=== PATIENT | male | born 1980 | race Caucasian/White ===

== ENCOUNTER 2019-05-01 08:39 | Inpatient (IN) | payer OTHER ==
--- NOTE | 2019-05-01 10:06 | HP ---
COWS - Scale Resting Pulse: 0= IN 80 or Below Sweatin=Flushed/Facial Moisture Restless Observation: 1= Difficult to Sit Still Pupil Size: 1= Pupils >than Normal Bone or Joint Aches: 1= Mild Discomfort Runny Nose/ Eye Tearin= Runny Nose/Eyes GI Upset > 30mins: 2= Nausea/Diarrhea Tremor Observation: 2= Slight Tremor Visible Yawning Observation: 2= >3x During Session Anxiety or Irritability: 1=Feels Anxious/Irritable Goose Flesh Skin: 3=Piloerection COWS Score: 17 CIWA Score Nausea/Vomitin Muscle Tremors: 2 Anxiety: 2 Agitation: 1-Slight > Activity Paroxysmal Sweats: 2 Orientation: 0-Oriented Tacttile Disturbances: 3-Moderate Itch/Numb/Burn Auditory Disturbances: 0-None Visual Disturbances: 1-Very Mild Sensitivity Headache: 1-Very Mild CIWA-Ar Total Score: 14 - Admission Criteria OASAS Guidelines: Admission for Medically Managed Detox: Requires at least one of the followin. CIWA greater than 12 2. Seizures within the past 24 hours 3. Delirium tremens within the past 24 hours 4. Hallucinations within the past 24 hours 5. Acute intervention needed for co occurring medical disorder 6. Acute intervention needed for co occurring psychiatric disorder 7. Severe withdrawal that cannot be handled at a lower level of care (continued vomiting, continued diarrhea, abnormal vital signs) requiring intravenous medication and/or fluids 8. Patient presents the following: CIWA greater than 12 Admission Criteria Met: Admission criteria met Admission ROS [facility] Chief Complaint: I need help Allergies/Adverse Reactions: Allergies Allergy/AdvReac Type Severity Reaction Status Date / Time No Known Allergies Allergy Verified 05/01/19 09:20 History of Present Illness: 39 year old man with opiates and alcohol dependence presents for detox, his last treatment was in 2017 at [facility]. 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 Exam Limitations: No Limitations - Ebola screening Have you traveled outside of the country in the last 21 days: No (N) Have you had contact with anyone from an Ebola affected area: No Have you been sick,other than usual withdrawal symptoms: No Do you have a fever: No - Review of Systems Constitutional: Chills, Changes in sleep EENT: reports: Tearing, Nose Congestion Respiratory: reports: Cough Cardiac: reports: Lightheadedness (occasionally) GI: reports: Diarrhea, Nausea : reports: No Symptoms Reported Musculoskeletal: reports: Back Pain, Muscle Pain Integumentary: reports: Flushing Neuro: reports: Headache, Numbness, Tremors Endocrine: reports: No Symptoms Reported Hematology: reports: Anemia Psychiatric: reports: Anxious, Depressed Other Systems: Reviewed and Negative Patient History - Patient Medical History Hx Anemia: Yes Hx Asthma: Yes Hx Chronic Obstructive Pulmonary Disease (COPD): No Hx Cancer: No Hx Cardiac Disorders: No Hx Congestive Heart Failure: No Hx Hypertension: No Hx Hypercholesterolemia: No Hx Pacemaker: No Hx Seizures: No Hx Dementia: No Hx Diabetes: No Hx Gastrointestinal Disorders: No Hx Liver Disease: No Hx Genitourinary Disorders: No Hx Sexually Transmitted Disorders: No Hx Renal Disease (ESRD): No Hx Thyroid Disease: No Hx Human Immunodeficiency Virus (HIV): No Hx Hepatitis C: No Hx Depression: Yes Hx Suicide Attempt: No Hx Bipolar Disorder: Yes Hx Schizophrenia: No - Patient Surgical History Past Surgical History: No - PPD History Previous Implant?: No Documented Results: Negative w/o proof Implanted On Prior [facility] Admission?: No PPD to be Administered?: Yes - Smoking Cessation Smoking history: Current every day smoker Have you smoked in the past 12 months: Yes Aproximately how many cigarettes per day: 3 Hx Chewing Tobacco Use: No Initiated information on smoking cessation: Yes 'Breaking Loose' booklet given: 05/01/19 - Substance & Tx. History Hx Alcohol Use: Yes Hx Substance Use: Yes Substance Use Type: Cocaine, Marijuana, Opiates - Substances abused Alcohol Substance route: Oral Frequency: Daily Amount used: 2 pints Bacardi Age of first use: 24 Date of last use: 04/28/19 Heroin Substance route: Injection Frequency: Daily Amount used: 3 -6 bags/day Age of first use: 29 Date of last use: 04/30/19 Benzodiazepine (Klonopin) Substance route: Oral Frequency: Daily Amount used: 8mg Age of first use: 19 Date of last use: 04/28/19 Family Disease History - Family Disease History Family History: Unable to Obtain Admission Physical Exam BHS - Vital Signs Vital Signs: Vital Signs - 24 hr 05/01/19 09:14 Temperature 97.7 F Pulse Rate 46 L Respiratory 18 Rate Blood Pressure 152/78 - Physical HEENTM: Yes: Normocephalic, Normal Voice, Pharynx Normal, Tm's normal, Nasal Congestion, Rhinorrhea Respiratory: Yes: Chest Non-Tender, Lungs Clear, Normal Breath Sounds, No Respiratory Distress, No Accessory Muscle Use Neck: Yes: No masses,lesions,Nodules, Trachea in good position Breast: Yes: Breast Exam Deferred Cardiology: Yes: Regular Rhythm, Regular Rate, S1, S2 Abdominal: Yes: Normal Bowel Sounds, Non Tender, Flat Genitourinary: Yes: Within Normal Limits Back: Yes: Normal Inspection Musculoskeletal: Yes: full range of Motion, Gait Steady, Pelvis Stable Extremities: Yes: Normal Capillary Refill, Normal Range of Motion, Non-Tender Neurological: Yes: records clerk II-XII NML intact, Fully Oriented, Alert, Normal Mood/ Affect, Normal Response, Numbness (limited feeling in right hand due to nerve damage from IVDU, wears hand splint) Integumentary: Yes: Clammy, Track Sebastian Lymphatic: Yes: Within Normal Limits - Diagnostic (1) Alcohol dependence, uncomplicated Current Visit: Yes Status: Acute (2) Opioid dependence Current Visit: Yes Status: Acute Qualifiers: Substance use status: uncomplicated Qualified Code(s): F11.20 - Opioid dependence, uncomplicated (3) Nicotine dependence Current Visit: Yes Status: Acute Qualifiers: Nicotine product type: cigarettes Substance use status: uncomplicated Qualified Code(s): F17.210 - Nicotine dependence, cigarettes, uncomplicated Cleared for Admission S - Detox or Rehab [facility] Level of Care: Medically Managed Detox Regimen/Protocol: Methadone/Librium Claeared for Rehab Admission: No Breathalyzer - Breathalyzer Breathalyzer: 0 Urine Drug Screen - Test Device Lot number: [id number] Expiration date: 12/31/20 - Control Is test valid?: Yes - Results Drug screen NEGATIVE: No Urine drug screen results: THC-Marijuana, DIMAS-Cocaine, MOP-Opiates Inpatient Rehab Admission - Rehab Decision to Admit Inpatient rehab admission?: No
[2019-05-01] MEDS ORDERED: MAGNESIUM HYDROX 2400MG/30ML ORAL SUSPENSION 30 ML CUP PO PRN (10:18)
[2019-05-01] MEDS ORDERED: hydrOXYzine PAMOATE 50 MG CAPSULE (FP) PO PRN (10:18)
[2019-05-01] MEDS ORDERED: ONDANSETRON *ODT* 4 MG TABLET SL PRN (10:18)
[2019-05-01] MEDS ORDERED: MAG HYDROX/AL HYDROX/SIMETH 30 ML UNIT-DOSE CUP PO PRN (10:18)
[2019-05-01] MEDS ORDERED: BISMUTH SUBSALICYLATE 524 MG/30 ML UD PO PRN (10:18)
[2019-05-01] MEDS ORDERED: NALOXONE HCL 0.4 MG/ML VIAL IVPUSH PRN (10:18)
[2019-05-01] MEDS ORDERED: chlordiazePOXIDE HCL 10 MG CAPSULE PO PRN (10:18)
[2019-05-01] MEDS ORDERED: clonazePAM 0.5 MG TABLET PO PRN (10:18)
[2019-05-01] MEDS ORDERED: ACETAMINOPHEN 325 MG TABLET (FP) PO PRN ×2 (10:18)
[2019-05-01] MEDS ORDERED: cloNIDine HCL 0.1 MG TABLET PO PRN (10:18)
[2019-05-01] MEDS ORDERED: METHOCARBAMOL 500 MG TABLET PO PRN (10:18)
[2019-05-01] MEDS ORDERED: MAGNESIUM CITRATE 300 ML BOTTLE PO PRN (10:18)
[2019-05-01] MEDS ORDERED: IBUPROFEN 400 MG TABLET (FP) PO PRN (10:18)
[2019-05-01] MEDS ORDERED: NICOTINE POLACRILEX 2 MG GUM BUC PRN (10:18)
[2019-05-01] MEDS ORDERED: MENTHOL/PHENOL 1 EACH UD MM PRN (10:18)
[2019-05-01] MEDS ORDERED: METHADONE HCL 10 MG TABLET (FOR DETOX USE ONLY) PO ONE ×2 (10:18→23:00)
[2019-05-01] MEDS ORDERED: P-EPHED 60MG/TRIPROLIDI 2.5MG TABLET PO PRN (10:18)
[2019-05-01] MEDS: NICOTINE 7 MG/24 HOURS TOPICAL PATCH TD SCH (11:31)
[2019-05-01] MEDS: chlordiazePOXIDE HCL 25 MG CAPSULE PO SCH ×2 (13:38→22:42)
[2019-05-01] MEDS: MELATONIN 5 MG TABLETS PO PRN (22:42)
[2019-05-01] MEDS: THIAMINE HCL 100 MG TABLET (FP) PO SCH (22:42)
[2019-05-02] MEDS: chlordiazePOXIDE HCL 25 MG CAPSULE PO SCH (06:06)
[2019-05-02 09:30] LABS: HEMATOCRIT 41.3 % (35.4-49); HEMOGLOBIN 13.4 GM/dL (11.7-16.9); MCH 29.3 pg (25.7-33.7); MCHC 32.4 g/dl (32.0-35.9); MEAN CELL VOLUME 90.6 fl (80-96); MEAN PLT VOLUME 9.2 fl (7.5-11.1); RBC 4.56 M/mm3 (4.00-5.60); RDW 13.8 % (11.9-15.9); WHITE BLOOD COUNT 5.3 K/mm3 (4.0-10.0)
[2019-05-02 09:35] LABS: ALBUMIN 3.7 g/dl (3.4-5.0); BILIRUBIN,TOTAL 0.5 mg/dL (0.2-1); BLOOD UREA NITROGEN 10.8 mg/dL (7-18); CALCIUM 8.7 mg/dL (8.5-10.1); CREATININE 0.8 mg/dL (0.55-1.3); POTASSIUM 3.4 mmol/L (3.5-5.1)
--- NOTE | 2019-05-02 09:56 | CONSULT ---
[facility] Psychiatric Consult - Data Date of interview: 05/02/19 Admission source: Self-referred Identifying data: Mr Reaves is single , father of a 10 years old daughter, unemployedreceiving public assistance, homeless seeking detox treatment for alcohol, opioid and benzodiazepine Substance Abuse History: Reports of alcohol, heroin and klonoin use. Refer to addiction counselor's summary for further information Medical History: Significant for bronchial asthma. Smokes 3 cigarettes daily Psychiatric History: Reports being diagnosed with Bipolar Disorder, depression and anxiety approximately 20 years ago. Reports history of one psychiatric hospitalization in [place] in 2016. Reports receiving psychiatic treatment at a clinic in the [place] called "[facility]" and he is prescribed Zoloft, [place], KKlonopin and Ambien. He has no idea of stengh, frequency for these medications as well as Pharmacy name. External medication history unavailable on line. At present, denies experiencing psychotic, manic symptoms, S/H ideations. However, reports feeling depressed, anxious and sleeping poorly Physical/Sexual Abuse/Trauma History: Denies history of emotional, physical or sexual abuse as well as DV relationship Additional Comment: Denies criminal history Mental Status Exam - Mental Status Exam Alert and Oriented to: Time, Place, Person Cognitive Function: Fair Patient Appearance: Well Groomed Mood: Depressed, Anxious Affect: Appropriate Patient Behavior: Cooperative Speech Pattern: Clear Voice Loudness: Normal Thought Process: Intact, Goal Oriented Hallucinations: Denies Suicidal Ideation: Denies Homicidal Ideation: Denies Insight/Judgement: Fair Sleep: Poorly Appetite: Good Muscle strength/Tone: Normal Gait/Station: Normal Psychiatric Findings - Problem List ([place] 1, 2,3) (1) Bipolar disorder Current Visit: Yes Status: Chronic (2) Substance induced mood disorder Current Visit: Yes Status: Acute (3) Substance-induced sleep disorder Current Visit: Yes Status: Acute (4) Alcohol dependence, uncomplicated Current Visit: Yes Status: Acute (5) Opioid dependence Current Visit: Yes Status: Acute Qualifiers: Substance use status: uncomplicated Qualified Code(s): F11.20 - Opioid dependence, uncomplicated (6) Sedative hypnotic or anxiolytic dependence Current Visit: Yes Status: Acute (7) Nicotine dependence Current Visit: Yes Status: Chronic Qualifiers: Nicotine product type: cigarettes Substance use status: uncomplicated Qualified Code(s): F17.210 - Nicotine dependence, cigarettes, uncomplicated (8) Bronchial asthma Current Visit: Yes Status: Acute - Initial Treatment Plan Initial Treatment Plan: 1) Attempt will be made to find out information on patient medications in order to order them. 2) Continue inpatient detox
[2019-05-02 09:58] LABS: PLATELET COUNT 204 K/MM3 (134-434)
[2019-05-02] MEDS ORDERED: METHADONE HCL 5 MG TABLET (FOR DETOX USE ONLY) PO ONE (10:00)
[2019-05-02] MEDS: NICOTINE 7 MG/24 HOURS TOPICAL PATCH TD SCH (10:13)
[2019-05-02] MEDS: PRENATAL VITAMINS W/ FOLIC ACID TABLET (FP) PO SCH (10:13)
--- NOTE | 2019-05-02 12:48 | PN ---
S CIWA - CIWA Score Nausea/Vomitin-No Nausea/No Vomiting Muscle Tremors: 4-Moderate,w/Arms Extend Anxiety: 4-Mod. Anxious/Guarded Agitation: 4-Moderately Restless Paroxysmal Sweats: 1-Minimal Palms Moist Orientation: 0-Oriented Tacttile Disturbances: 0-None Auditory Disturbances: 0-None Visual Disturbances: 0-None Headache: 0-None Present CIWA-Ar Total Score: 13 BHS COWS - Scale Resting Pulse: 0= [place] 80 or Below Sweatin= Chills/Flushing Restless Observation: 3= Extraneous Movement Pupil Size: 0= Normal to Room Light Bone or Joint Aches: 1= Mild Discomfort Runny Nose/ Eye Tearin= None GI Upset > 30mins: 2= Nausea/Diarrhea Tremor Observation of Outstretched Hands: 4= Gross Tremor/Twitching Yawning Observation: 0= None Anxiety or Irritability: 2=Irritable/Anxious Goose Flesh Skin: 0=Smooth Skin COWS Score: 13 S Progress Note (SOAP) Subjective: C/o anxiety,abdominal cramps, diarrhea hot/cold chills, intermittent sleep. Objective: 05/02/19 12:46 Vital Signs - 24 hr 05/01/19 05/01/19 05/01/19 13:44 18:14 23:05 Temperature 99.3 F 97.4 F L 98.3 F Pulse Rate 44 L 59 L 46 L Respiratory 18 18 16 Rate Blood Pressure 168/84 133/73 140/72 05/02/19 05/02/19 05/02/19 00:52 03:50 06:22 Temperature 97.1 F L Pulse Rate 53 L Respiratory 18 18 18 Rate Blood Pressure 129/82 05/02/19 09:28 Temperature 98.8 F Pulse Rate 47 L Respiratory 18 Rate Blood Pressure 131/75 Laboratory Tests 05/02/19 05/02/19 05/02/19 07:30 07:30 07:30 WBC 5.3 RBC 4.56 Hgb 13.4 Hct 41.3 MCV 90.6 MCH 29.3 MCHC 32.4 RDW 13.8 Plt Count 204 MPV 9.2 Sodium 141 Potassium 3.4 L Chloride 106 Carbon Dioxide 31 Anion Gap 4 L BUN 10.8 Creatinine 0.8 Est GFR (CKD-EPI)AfAm 129.51 Est GFR (CKD-EPI)NonAf 111.74 Random Glucose 92 Calcium 8.7 Total Bilirubin 0.5 AST 53 H ALT 53 Alkaline Phosphatase 57 Total Protein 7.0 Albumin 3.7 RPR Titer Nonreactive HIV 1&2 Antibody Screen HIV P24 Antigen 05/02/19 07:30 WBC RBC Hgb Hct MCV MCH MCHC RDW Plt Count MPV Sodium Potassium Chloride Carbon Dioxide Anion Gap BUN Creatinine Est GFR (CKD-EPI)AfAm Est GFR (CKD-EPI)NonAf Random Glucose Calcium Total Bilirubin AST ALT Alkaline Phosphatase Total Protein Albumin RPR Titer HIV 1&2 Antibody Screen Negative HIV P24 Antigen Negative k+ =3.4 Assessment: 05/02/19 12:47 withdrawal sx Plan: continue detox kdur 20 meq po daily x 3 days Ensure po bid increase po fluids imodium prn for diarrhea
[2019-05-02] MEDS: POTASSIUM CHLORIDE TABS 20 MEQ TABLET.ER (FP) PO SCH (13:43)
[2019-05-02] MEDS: chlordiazePOXIDE 5 MG CAPSULE PO SCH ×2 (13:43→22:36)
[2019-05-02] MEDS: MELATONIN 5 MG TABLETS PO PRN (22:37)
[2019-05-02] MEDS: THIAMINE HCL 100 MG TABLET (FP) PO SCH (22:37)
--- NOTE | 2019-05-03 00:08 | EKG ---
Test Reason : Blood Pressure : / mmHG Vent. Rate : 052 BPM Atrial Rate : 054 BPM P-R Int : 116 ms QRS Dur : 090 ms QT Int : 464 ms P-R-T Axes : 046 070 051 degrees QTc Int : 431 ms SINUS BRADYCARDIA WITH MARKED SINUS ARRHYTHMIA VOLTAGE CRITERIA FOR LEFT VENTRICULAR HYPERTROPHY ABNORMAL ECG NO PREVIOUS ECGS AVAILABLE Confirmed by MD Renny, Prem ([id number]) on 05/03/2019 12:08:18 AM Referred By: Confirmed By:Prem Lawson MD
[2019-05-03] MEDS: chlordiazePOXIDE 5 MG CAPSULE PO SCH (06:10)
[2019-05-03] MEDS ORDERED: METHADONE HCL 10 MG TABLET (FOR DETOX USE ONLY) PO ONE (10:00)
[2019-05-03] MEDS: POTASSIUM CHLORIDE TABS 20 MEQ TABLET.ER (FP) PO SCH (10:21)
[2019-05-03] MEDS: PRENATAL VITAMINS W/ FOLIC ACID TABLET (FP) PO SCH (10:21)
[2019-05-03] MEDS: NICOTINE 7 MG/24 HOURS TOPICAL PATCH TD SCH (10:22)
[2019-05-03] MEDS ORDERED: chlordiazePOXIDE HCL 10 MG CAPSULE PO PRN (13:00)
[2019-05-03] MEDS: chlordiazePOXIDE HCL 10 MG CAPSULE PO SCH ×2 (13:25→22:06)
--- NOTE | 2019-05-03 15:58 | PN ---
[facility] CIWA - CIWA Score Nausea/Vomitin-No Nausea/No Vomiting Muscle Tremors: None Anxiety: 0-No Anxiety, at Ease Agitation: 2 Paroxysmal Sweats: No Perspiration Orientation: 0-Oriented Tacttile Disturbances: 0-None Auditory Disturbances: 0-None Visual Disturbances: 0-None Headache: 0-None Present CIWA-Ar Total Score: 2 S COWS - Scale Resting Pulse: 0= [place] 80 or Below Sweatin= No chills or Flushing Restless Observation: 1= Difficult to Sit Still Pupil Size: 0= Normal to Room Light Bone or Joint Aches: 0= None Runny Nose/ Eye Tearin= None GI Upset > 30mins: 0= None Tremor Observation of Outstretched Hands: 0= None Yawning Observation: 1= 1-2x During Session Anxiety or Irritability: 0= None Goose Flesh Skin: 0=Smooth Skin COWS Score: 2 S Progress Note (SOAP) Subjective: Patient denies current Withdrawal / Detox symptoms and reports that he feels well overall at this time. Objective: PATIENT A & O X 3, OBSERVED AMBULATING ON UNIT UNASSISTED. IN NO ACUTE DISTRESS. 05/03/19 16:00 Laboratory Tests 05/02/19 05/02/19 05/02/19 07:30 07:30 07:30 WBC 5.3 RBC 4.56 Hgb 13.4 Hct 41.3 MCV 90.6 MCH 29.3 MCHC 32.4 RDW 13.8 Plt Count 204 MPV 9.2 Sodium 141 Potassium 3.4 L Chloride 106 Carbon Dioxide 31 Anion Gap 4 L BUN 10.8 Creatinine 0.8 Est GFR (CKD-EPI)AfAm 129.51 Est GFR (CKD-EPI)NonAf 111.74 Random Glucose 92 Calcium 8.7 Total Bilirubin 0.5 AST 53 H ALT 53 Alkaline Phosphatase 57 Total Protein 7.0 Albumin 3.7 RPR Titer Nonreactive HIV 1&2 Antibody Screen HIV P24 Antigen 05/02/19 07:30 WBC RBC Hgb Hct MCV MCH MCHC RDW Plt Count MPV Sodium Potassium Chloride Carbon Dioxide Anion Gap BUN Creatinine Est GFR (CKD-EPI)AfAm Est GFR (CKD-EPI)NonAf Random Glucose Calcium Total Bilirubin AST ALT Alkaline Phosphatase Total Protein Albumin RPR Titer HIV 1&2 Antibody Screen Negative HIV P24 Antigen Negative labs noted. Assessment: 05/03/19 16:01 WITHDRAWAL SYMPTOMS. HYPOKALEMIA. ELEVATED AST LEVEL. Plan: CONTINUE DETOX. CONTINUE K-DUR FOR LOW POTASSIUM LEVEL NOTED ON DETOX ADMISSION LABORATORY ASSESSMENT. PATIENT SCHEDULED FOR D/C FROM DETOX UNIT TOMORROW.
[2019-05-03] MEDS: MELATONIN 5 MG TABLETS PO PRN (22:06)
[2019-05-03] MEDS: THIAMINE HCL 100 MG TABLET (FP) PO SCH (22:06)
[2019-05-04] MEDS: chlordiazePOXIDE HCL 10 MG CAPSULE PO SCH (05:52)
[2019-05-04] MEDS ORDERED: METHADONE HCL 5 MG TABLET (FOR DETOX USE ONLY) PO ONE (06:00)
[2019-05-04 09:21] VITALS: BP 128/70; PULSE 63; TEMP 97.2
== END 2019-05-04 09:05 | disposition home or self-care (01) | DRG 773 ==
LOC: YASAS 08:39 → Y3N 10:16
PROVIDERS: ADMIT Surgery; ATTEND Surgery
PROC: HZ2ZZZZ Detoxification Services for Substance Abuse Treatment (ICD-10-PCS; principal; 2019-05-01)
DX: F10.230 Alcohol dependence with withdrawal, uncomplicated (principal); F11.23 Opioid dependence with withdrawal; F13.20 Sedative, hypnotic or anxiolytic dependence, uncomplicated; F17.210 Nicotine dependence, cigarettes, uncomplicated; F19.282 Other psychoactive substance dependence with psychoactive substance-induced sleep disorder; F19.24 Other psychoactive substance dependence with psychoactive substance-induced mood disorder; F31.9 Bipolar disorder, unspecified; E87.6 Hypokalemia; R94.5 Abnormal results of liver function studies; J45.909 Unspecified asthma, uncomplicated; Z59.0 Homelessness
CPT/HCPCS: 36415; 80053; 85027; 86593; 87389; 93005; 93010

== ENCOUNTER 2019-07-26 13:37 | Inpatient (IN) | payer OTHER ==
[2019-07-26 16:45] VITALS: BMI 21.2
--- NOTE | 2019-07-26 17:38 | HP ---
CIWA Score Nausea/Vomitin Muscle Tremors: 2 Anxiety: 1-Mildly Anxious Agitation: 0-Normal Activity Paroxysmal Sweats: No Perspiration Orientation: 1-Uncertain about Date Tacttile Disturbances: 3-Moderate Itch/Numb/Burn Auditory Disturbances: 1-Very Mild Visual Disturbances: 0-None Headache: 2-Mild CIWA-Ar Total Score: 12 - Admission Criteria OASAS Guidelines: Admission for Medically Managed Detox: Requires at least one of the followin. CIWA greater than 12 2. Seizures within the past 24 hours 3. Delirium tremens within the past 24 hours 4. Hallucinations within the past 24 hours 5. Acute intervention needed for co occurring medical disorder 6. Acute intervention needed for co occurring psychiatric disorder 7. Severe withdrawal that cannot be handled at a lower level of care (continued vomiting, continued diarrhea, abnormal vital signs) requiring intravenous medication and/or fluids 8. Admission ROS [facility] Chief Complaint: (in kinyarwanda) "I am here for addiction and I am here for help and therapy, I want to quit doing drugs" Allergies/Adverse Reactions: Allergies Allergy/AdvReac Type Severity Reaction Status Date / Time No Known Allergies Allergy Verified 07/26/19 16:26 History of Present Illness: 39 year old, kinyarwanda-speaking male with a past medical history of asthma presented for detox from alcohol and heroin. Was recently in detox in April. Reports being on methadone 90mg daily. Alcohol: last used Friday, 2-3 large bottles of liquor every day for 25 years. Denies having withdrawal seizures in the past. Reports restarting because of depression Heroin: Friday last use, 2-4 bags of heroin every day with cocaine for 30 years, injects in arms, withdrawal in April and in [place] many times- reports symptoms of vomiting, nausea, diarrhea Cocaine: 2 bags every day for 30 years, injects in arms with the heroin Marijuana: occasional marijuana use, very little Cigarettes: 2-3 cigarettes daily Psychiatric: depression, bipolar, anxiety, insomnia, psychosis PSH: never PMH: Asthma Lives in a nursing home - Ebola screening Have you traveled outside of the country in the last 21 days: No (N) Have you had contact with anyone from an Ebola affected area: No Do you have a fever: No - Review of Systems Constitutional: Diaphoresis, Loss of Appetite, Night Sweats EENT: reports: Blurred Vision Respiratory: reports: Cough, Shortness of Breath GI: reports: Diarrhea, Nausea, Vomiting : reports: No Symptoms Reported Musculoskeletal: reports: No Symptoms Reported Integumentary: reports: No Symptoms Reported Neuro: reports: Headache, Tingling Endocrine: reports: No Symptoms Reported Hematology: reports: Anemia Psychiatric: reports: Agitated, Anxious, Depressed Patient History - Patient Medical History Hx Anemia: Yes Hx Asthma: Yes Hx Chronic Obstructive Pulmonary Disease (COPD): No Hx Cancer: No Hx Cardiac Disorders: No Hx Congestive Heart Failure: No Hx Hypertension: No Hx Hypercholesterolemia: No Hx Pacemaker: No Hx Seizures: No Hx Dementia: No Hx Diabetes: No Hx Gastrointestinal Disorders: No Hx Liver Disease: No Hx Genitourinary Disorders: No Hx Sexually Transmitted Disorders: No Hx Renal Disease (ESRD): No Hx Thyroid Disease: No Hx Human Immunodeficiency Virus (HIV): No Hx Hepatitis C: No Hx Depression: Yes Hx Suicide Attempt: No Hx Bipolar Disorder: Yes Hx Schizophrenia: No - Patient Surgical History Past Surgical History: No Hx Neurologic Surgery: No Hx Cataract Extraction: No Hx Cardiac Surgery: No Hx Lung Surgery: No Hx Breast Surgery: No Hx Breast Biopsy: No Hx Abdominal Surgery: No Hx Appendectomy: No Hx Cholecystectomy: No Hx Genitourinary Surgery: No Hx Section: No Hx Orthopedic Surgery: No Anesthesia Reaction: Yes - PPD History Date: 05/03/19 - Smoking Cessation Smoking history: Current every day smoker Have you smoked in the past 12 months: Yes Aproximately how many cigarettes per day: 3 Hx Chewing Tobacco Use: No Initiated information on smoking cessation: Yes 'Breaking Loose' booklet given: 07/26/19 - Substances abused Alcohol Substance route: Oral Frequency: Daily Amount used: 2 pints Bacardi Age of first use: 24 Date of last use: 07/26/19 Heroin Substance route: Injection Frequency: Daily Amount used: 3 -6 bags/day Age of first use: 29 Date of last use: 07/25/19 Benzodiazepine (Klonopin) Substance route: Oral Frequency: Daily Amount used: 8mg Age of first use: 19 Date of last use: 07/24/19 Admission Physical Exam BHS - Vital Signs Vital Signs: Vital Signs - 24 hr 07/26/19 16:31 Temperature 97.5 F L Pulse Rate 50 L Respiratory 18 Rate Blood Pressure 111/63 - Physical General Appearance: Yes: No Apparent Distress, Nourished, Appropriately Dressed HEENTM: Yes: EOMI, Normocephalic, Normal Voice, Pharynx Normal Respiratory: Yes: Lungs Clear, Normal Breath Sounds Neck: Yes: No masses,lesions,Nodules Breast: Yes: Axillae without masses, Breasts Symetrical Cardiology: Yes: Regular Rhythm, Regular Rate Abdominal: Yes: Normal Bowel Sounds, Flat, Soft Musculoskeletal: Yes: full range of Motion, Gait Steady Neurological: Yes: drafter electrical II-XII NML intact, Fully Oriented, Alert, Motor Strength 5/5, Normal Mood/Affect Integumentary: Yes: Dry, Warm Breathalyzer - Breathalyzer Breathalyzer: 0 Urine Drug Screen - Test Device Lot number: [id number] Expiration date: 04/02/21 - Control Is test valid?: Yes - Results Drug screen NEGATIVE: No Urine drug screen results: THC-Marijuana, DIMAS-Cocaine, MOP-Opiates, BZO- Benzodiazepines Inpatient Rehab Admission - Rehab Decision to Admit Inpatient rehab admission?: No
[2019-07-26] MEDS ORDERED: BISMUTH SUBSALICYLATE 524 MG/30 ML UD PO PRN (18:07)
[2019-07-26] MEDS ORDERED: METHOCARBAMOL 500 MG TABLET PO PRN (18:07)
[2019-07-26] MEDS ORDERED: MAGNESIUM HYDROX 2400MG/30ML ORAL SUSPENSION 30 ML CUP PO PRN (18:07)
[2019-07-26] MEDS ORDERED: MAG HYDROX/AL HYDROX/SIMETH 30 ML UNIT-DOSE CUP PO PRN (18:07)
[2019-07-26] MEDS ORDERED: chlordiazePOXIDE HCL 25 MG CAPSULE PO PRN (18:07)
[2019-07-26] MEDS ORDERED: IBUPROFEN 400 MG TABLET (FP) PO PRN (18:07)
[2019-07-26] MEDS ORDERED: ACETAMINOPHEN 325 MG TABLET (FP) PO PRN ×2 (18:07)
[2019-07-26] MEDS ORDERED: MAGNESIUM CITRATE 300 ML BOTTLE PO PRN (18:07)
--- NOTE | 2019-07-26 18:08 | PN ---
Teaching Attending Note Name of Resident: Aidan Gerber ATTENDING PHYSICIAN STATEMENT I saw and evaluated the patient. I reviewed the resident's note and discussed the case with the resident. I agree with the resident's findings and plan as documented. SUBJECTIVE: 39 yo with alcohol and heroin use disorders, on MAT methadone, recently discharged relapse, no h/o seizures, no h/o DT's. Uses heroin 2-4 bags/ daily along with cocaine. OBJECTIVE: Vital Signs - 24 hr 07/26/19 16:31 Temperature 97.5 F L Pulse Rate 50 L Respiratory 18 Rate Blood Pressure 111/63 anxious alert and oriented ASSESSMENT AND PLAN: admit for alcohol- detox protocol heroin use disorders- continue methadone 90mg
[2019-07-26] MEDS: chlordiazePOXIDE HCL 25 MG CAPSULE PO SCH ×2 (18:51→22:14)
[2019-07-26] MEDS: MENTHOL/PHENOL 1 EACH UD MM PRN (18:56)
[2019-07-26] MEDS: THIAMINE HCL 100 MG TABLET (FP) PO SCH (22:14)
[2019-07-27] MEDS ORDERED: ALBUTEROL SO4 8 GM HFA INHALER IH ONE (02:01)
[2019-07-27] MEDS ORDERED: ALBUTEROL SO4 0.083% IH SOL 2.5 MG/3 ML VIAL.NEB. NEB PRN (02:04)
[2019-07-27] MEDS: chlordiazePOXIDE HCL 25 MG CAPSULE PO SCH ×2 (06:44→10:36)
[2019-07-27 10:34] LABS: ALBUMIN 3.2 g/dl (3.4-5.0); BILIRUBIN,TOTAL 0.2 mg/dL (0.2-1); BLOOD UREA NITROGEN 15.9 mg/dL (7-18); CALCIUM 8.6 mg/dL (8.5-10.1); CREATININE 0.9 mg/dL (0.55-1.3); POTASSIUM 3.5 mmol/L (3.5-5.1); TOT PROT 6.2 g/dl (6.4-8.2)
[2019-07-27] MEDS: PRENATAL VITAMINS W/ FOLIC ACID TABLET (FP) PO SCH (10:36)
[2019-07-27 10:47] LABS: HEMATOCRIT 38.8 % (35.4-49); HEMOGLOBIN 12.8 GM/dL (11.7-16.9); MCH 29.9 pg (25.7-33.7); MEAN CELL VOLUME 90.5 fl (80-96); MEAN PLT VOLUME 9.5 fl (7.5-11.1); PLATELET COUNT 161 K/MM3 (134-434); RBC 4.28 M/mm3 (4.00-5.60); RDW 14.8 % (11.9-15.9); WHITE BLOOD COUNT 5.6 K/mm3 (4.0-10.0)
[2019-07-27] MEDS ORDERED: METHADONE HCL 10 MG TABLET PO ONE (11:09)
[2019-07-27] MEDS ORDERED: METHADONE HCL 10 MG TABLET ONE (11:29)
[2019-07-27] MEDS ORDERED: METHADONE HCL 40 MG DISPERSABLE TABLET ONE (11:30)
[2019-07-27] MEDS ORDERED: METHADONE 80 MG, METHADONE 10 MG PO ONE (11:30)
[2019-07-27] MEDS ORDERED: predniSONE 20 MG TABLET (UD) PO ONE (11:47)
--- NOTE | 2019-07-27 12:03 | PN ---
[facility] CIWA - CIWA Score Nausea/Vomitin-Mild Nausea/No Vomiting Muscle Tremors: 4-Moderate,w/Arms Extend Anxiety: 3 Agitation: 3 Paroxysmal Sweats: 2 Orientation: 1-Uncertain about Date (date of week) Tacttile Disturbances: 0-None Auditory Disturbances: 0-None Visual Disturbances: 0-None Headache: 0-None Present CIWA-Ar Total Score: 14 S Progress Note (SOAP) Subjective: long history of asthma x 20 years cigarette smoker methadone program 90 mg po daily begin prednison 60 mg mary carmen off end at discharged Objective: 07/27/19 12:00 Vital Signs Temperature 98.5 F 07/27/19 09:29 Pulse Rate 86 07/27/19 09:37 Respiratory Rate 14 07/27/19 09:29 Blood Pressure 103/72 07/27/19 09:29 O2 Sat by Pulse Oximetry (%) 98 07/27/19 09:37 Laboratory Last Values WBC 5.6 K/mm3 (4.0-10.0) 07/27/19 08:15 RBC 4.28 M/mm3 (4.00-5.60) 07/27/19 08:15 Hgb 12.8 GM/dL (11.7-16.9) 07/27/19 08:15 Hct 38.8 % (35.4-49) 07/27/19 08:15 MCV 90.5 fl (80-96) 07/27/19 08:15 MCH 29.9 pg (25.7-33.7) 07/27/19 08:15 MCHC 33.0 g/dl (32.0-35.9) 07/27/19 08:15 RDW 14.8 % (11.9-15.9) 07/27/19 08:15 Plt Count 161 K/MM3 (134-434) D 07/27/19 08:15 MPV 9.5 fl (7.5-11.1) 07/27/19 08:15 Sodium 139 mmol/L (136-145) 07/27/19 08:15 Potassium 3.5 mmol/L (3.5-5.1) 07/27/19 08:15 Chloride 104 mmol/L (98-107) 07/27/19 08:15 Carbon Dioxide 27 mmol/L (21-32) 07/27/19 08:15 Anion Gap 7 MMOL/L (8-16) L 07/27/19 08:15 BUN 15.9 mg/dL (7-18) 07/27/19 08:15 Creatinine 0.9 mg/dL (0.55-1.3) 07/27/19 08:15 Est GFR (CKD-EPI)AfAm 123.39 07/27/19 08:15 Est GFR (CKD-EPI)NonAf 106.46 07/27/19 08:15 Random Glucose 113 mg/dL (74-106) H 07/27/19 08:15 Calcium 8.6 mg/dL (8.5-10.1) 07/27/19 08:15 Total Bilirubin 0.2 mg/dL (0.2-1) 07/27/19 08:15 AST 193 U/L (15-37) H 07/27/19 08:15 ALT 412 U/L (13-61) H 07/27/19 08:15 Alkaline Phosphatase 92 U/L (45-117) 07/27/19 08:15 Total Protein 6.2 g/dl (6.4-8.2) L 07/27/19 08:15 Albumin 3.2 g/dl (3.4-5.0) L 07/27/19 08:15 RPR Titer Nonreactive (NONREACTIVE) 07/27/19 08:15 lab noted ast elevation patient will consider ativan as detox regimen Assessment: 07/27/19 12:03 alcohol withdrawal sx Plan: continue librium detox regimen at this time if patient agrees to change patient confirmed that ativan for alcohol detox
[2019-07-27] MEDS: LORazepam 1 MG TABLET PO SCH ×2 (13:32→22:24)
[2019-07-27] MEDS: MELATONIN 5 MG TABLETS PO PRN (22:24)
[2019-07-27] MEDS: THIAMINE HCL 100 MG TABLET (FP) PO SCH (22:24)
[2019-07-28] MEDS ORDERED: METHADONE HCL 10 MG TABLET ONE (04:08)
[2019-07-28] MEDS ORDERED: METHADONE HCL 40 MG DISPERSABLE TABLET ONE (04:09)
[2019-07-28] MEDS ORDERED: chlordiazePOXIDE HCL 25 MG CAPSULE PO SCH (05:00)
[2019-07-28] MEDS ORDERED: METHADONE 80 MG, METHADONE 10 MG PO SCH (06:00)
[2019-07-28] MEDS ORDERED: METHADONE HCL 40 MG DISPERSABLE TABLET PO SCH (06:00)
[2019-07-28] MEDS: LORazepam 0.5 MG TABLET PO SCH ×4 (06:33→22:19)
[2019-07-28] MEDS: METHADONE 80 MG, METHADONE 10 MG PO SCH (06:33)
[2019-07-28] MEDS ORDERED: predniSONE 20 MG TABLET (UD) PO ONE (10:00)
[2019-07-28] MEDS: PRENATAL VITAMINS W/ FOLIC ACID TABLET (FP) PO SCH (11:15)
--- NOTE | 2019-07-28 13:56 | PN ---
[facility] CIWA - CIWA Score Nausea/Vomitin-Mild Nausea/No Vomiting Muscle Tremors: 3 Anxiety: 3 Agitation: 2 Paroxysmal Sweats: 1-Minimal Palms Moist Orientation: 0-Oriented Tacttile Disturbances: 0-None Auditory Disturbances: 0-None Visual Disturbances: 0-None Headache: 0-None Present CIWA-Ar Total Score: 10 [facility] Progress Note (SOAP) Subjective: doing well with ativan detox regimen received methadone 90 mg po today feeling better ambulating on hallway discuss aftercare with staff prefers [facility] Objective: 07/28/19 13:54 Vital Signs Temperature 98.6 F 07/28/19 13:47 Pulse Rate 52 L 07/28/19 13:47 Respiratory Rate 18 07/28/19 13:47 Blood Pressure 112/69 07/28/19 13:47 O2 Sat by Pulse Oximetry (%) 98 07/27/19 09:37 Laboratory Last Values WBC 5.6 K/mm3 (4.0-10.0) 07/27/19 08:15 RBC 4.28 M/mm3 (4.00-5.60) 07/27/19 08:15 Hgb 12.8 GM/dL (11.7-16.9) 07/27/19 08:15 Hct 38.8 % (35.4-49) 07/27/19 08:15 MCV 90.5 fl (80-96) 07/27/19 08:15 MCH 29.9 pg (25.7-33.7) 07/27/19 08:15 MCHC 33.0 g/dl (32.0-35.9) 07/27/19 08:15 RDW 14.8 % (11.9-15.9) 07/27/19 08:15 Plt Count 161 K/MM3 (134-434) D 07/27/19 08:15 MPV 9.5 fl (7.5-11.1) 07/27/19 08:15 Sodium 139 mmol/L (136-145) 07/27/19 08:15 Potassium 3.5 mmol/L (3.5-5.1) 07/27/19 08:15 Chloride 104 mmol/L (98-107) 07/27/19 08:15 Carbon Dioxide 27 mmol/L (21-32) 07/27/19 08:15 Anion Gap 7 MMOL/L (8-16) L 07/27/19 08:15 BUN 15.9 mg/dL (7-18) 07/27/19 08:15 Creatinine 0.9 mg/dL (0.55-1.3) 07/27/19 08:15 Est GFR (CKD-EPI)AfAm 123.39 07/27/19 08:15 Est GFR (CKD-EPI)NonAf 106.46 07/27/19 08:15 Random Glucose 113 mg/dL (74-106) H 07/27/19 08:15 Calcium 8.6 mg/dL (8.5-10.1) 07/27/19 08:15 Total Bilirubin 0.2 mg/dL (0.2-1) 07/27/19 08:15 AST 193 U/L (15-37) H 07/27/19 08:15 ALT 412 U/L (13-61) H 07/27/19 08:15 Alkaline Phosphatase 92 U/L (45-117) 07/27/19 08:15 Total Protein 6.2 g/dl (6.4-8.2) L 07/27/19 08:15 Albumin 3.2 g/dl (3.4-5.0) L 07/27/19 08:15 RPR Titer Nonreactive (NONREACTIVE) 07/27/19 08:15 lab noted 07/28/19 13:55 ast elevation increase oral fluid repeat ast Assessment: 07/28/19 13:55 alcohol and benzo withdrawal sx Plan: continue ativan detox regimen
[2019-07-28] MEDS ORDERED: guaiFENesin 200 MG/10 ML 10 ML UNIT-DOSE CUPS PO PRN (20:45)
[2019-07-28] MEDS: MENTHOL/PHENOL 1 EACH UD MM PRN (21:19)
[2019-07-28] MEDS: THIAMINE HCL 100 MG TABLET (FP) PO SCH (21:19)
[2019-07-28] MEDS: MELATONIN 5 MG TABLETS PO PRN (21:21)
[2019-07-29] MEDS ORDERED: chlordiazePOXIDE HCL 10 MG CAPSULE PO PRN
[2019-07-29] MEDS ORDERED: chlordiazePOXIDE HCL 10 MG CAPSULE PO SCH (05:00)
[2019-07-29] MEDS ORDERED: METHADONE HCL 10 MG TABLET ONE (05:04)
[2019-07-29] MEDS ORDERED: METHADONE HCL 40 MG DISPERSABLE TABLET ONE (05:05)
[2019-07-29] MEDS: METHADONE 80 MG, METHADONE 10 MG PO SCH (05:35)
[2019-07-29] MEDS: LORazepam 0.5 MG TABLET PO SCH ×3 (05:36→22:21)
[2019-07-29] MEDS ORDERED: predniSONE 20 MG TABLET (UD) PO ONE (10:00)
[2019-07-29] MEDS: PRENATAL VITAMINS W/ FOLIC ACID TABLET (FP) PO SCH (10:03)
[2019-07-29] MEDS: NICOTINE 7 MG/24 HOURS TOPICAL PATCH TD SCH (11:32)
--- NOTE | 2019-07-29 11:53 | PN ---
[facility] CIWA - CIWA Score Nausea/Vomitin-No Nausea/No Vomiting Muscle Tremors: 2 Anxiety: 2 Agitation: 2 Paroxysmal Sweats: No Perspiration Orientation: 0-Oriented Tacttile Disturbances: 0-None Auditory Disturbances: 0-None Visual Disturbances: 0-None Headache: 0-None Present CIWA-Ar Total Score: 6 [facility] Progress Note (SOAP) Subjective: report coughing less breath better tolerate ativan well Objective: 07/29/19 11:51 Vital Signs Temperature 96 F L 07/29/19 09:26 Pulse Rate 62 07/29/19 09:26 Respiratory Rate 20 07/29/19 09:26 Blood Pressure 113/62 07/29/19 09:26 O2 Sat by Pulse Oximetry (%) 98 07/27/19 09:37 Laboratory Last Values WBC 5.6 K/mm3 (4.0-10.0) 07/27/19 08:15 RBC 4.28 M/mm3 (4.00-5.60) 07/27/19 08:15 Hgb 12.8 GM/dL (11.7-16.9) 07/27/19 08:15 Hct 38.8 % (35.4-49) 07/27/19 08:15 MCV 90.5 fl (80-96) 07/27/19 08:15 MCH 29.9 pg (25.7-33.7) 07/27/19 08:15 MCHC 33.0 g/dl (32.0-35.9) 07/27/19 08:15 RDW 14.8 % (11.9-15.9) 07/27/19 08:15 Plt Count 161 K/MM3 (134-434) D 07/27/19 08:15 MPV 9.5 fl (7.5-11.1) 07/27/19 08:15 Sodium 139 mmol/L (136-145) 07/27/19 08:15 Potassium 3.5 mmol/L (3.5-5.1) 07/27/19 08:15 Chloride 104 mmol/L (98-107) 07/27/19 08:15 Carbon Dioxide 27 mmol/L (21-32) 07/27/19 08:15 Anion Gap 7 MMOL/L (8-16) L 07/27/19 08:15 BUN 15.9 mg/dL (7-18) 07/27/19 08:15 Creatinine 0.9 mg/dL (0.55-1.3) 07/27/19 08:15 Est GFR (CKD-EPI)AfAm 123.39 07/27/19 08:15 Est GFR (CKD-EPI)NonAf 106.46 07/27/19 08:15 Random Glucose 113 mg/dL (74-106) H 07/27/19 08:15 Calcium 8.6 mg/dL (8.5-10.1) 07/27/19 08:15 Total Bilirubin 0.2 mg/dL (0.2-1) 07/27/19 08:15 AST 193 U/L (15-37) H 07/27/19 08:15 ALT 412 U/L (13-61) H 07/27/19 08:15 Alkaline Phosphatase 92 U/L (45-117) 07/27/19 08:15 Total Protein 6.2 g/dl (6.4-8.2) L 07/27/19 08:15 Albumin 3.2 g/dl (3.4-5.0) L 07/27/19 08:15 RPR Titer Nonreactive (NONREACTIVE) 07/27/19 08:15 lab noted Assessment: 07/29/19 11:52 alcohol and benzo withdrawal sx Plan: continue ativan detox regimen
[2019-07-29] MEDS: THIAMINE HCL 100 MG TABLET (FP) PO SCH (22:21)
[2019-07-29] MEDS: MELATONIN 5 MG TABLETS PO PRN (22:21)
[2019-07-30] MEDS ORDERED: METHADONE HCL 10 MG TABLET ONE (04:08)
[2019-07-30] MEDS ORDERED: METHADONE HCL 40 MG DISPERSABLE TABLET ONE (04:09)
[2019-07-30] MEDS ORDERED: chlordiazePOXIDE HCL 10 MG CAPSULE PO SCH (05:00)
[2019-07-30] MEDS: METHADONE 80 MG, METHADONE 10 MG PO SCH (05:14)
[2019-07-30] MEDS: LORazepam 0.5 MG TABLET PO SCH ×2 (05:14→10:09)
[2019-07-30] MEDS ORDERED: predniSONE 20 MG TABLET (UD) PO ONE (10:00)
[2019-07-30] MEDS: NICOTINE 7 MG/24 HOURS TOPICAL PATCH TD SCH (10:08)
[2019-07-30] MEDS: PRENATAL VITAMINS W/ FOLIC ACID TABLET (FP) PO SCH (10:09)
[2019-07-30] MEDS: hydrOXYzine PAMOATE 25 MG CAPSULE (FP) PO PRN ×2 (10:10→17:45)
[2019-07-30] MEDS ORDERED: TRIMETHOBENZAMIDE HCL 300 MG CAPSULE PO PRN (14:20)
--- NOTE | 2019-07-30 17:04 | PN ---
S CIWA - CIWA Score Nausea/Vomitin (Heartburn, Poor Appetite.) Muscle Tremors: None Anxiety: 3 Agitation: 2 Paroxysmal Sweats: No Perspiration Orientation: 2-Disoriented Date<2 days Tacttile Disturbances: 0-None Auditory Disturbances: 0-None Visual Disturbances: 0-None Headache: 0-None Present CIWA-Ar Total Score: 9 [facility] Progress Note (SOAP) Subjective: Anxious, Poor Appetite, Heartburn, Nausea. Objective: PATIENT A & O X 2 (UNCERTAIN ABOUT CURRENT DAY/ DATE). PATIENT OBSERVED AMBULATING ON DETOX UNIT UNASSISTED. IN NO ACUTE DISTRESS. 07/30/19 17:01 Vital Signs Temperature 98.0 F 07/30/19 14:11 Pulse Rate 74 07/30/19 14:11 Respiratory Rate 18 07/30/19 14:11 Blood Pressure 136/72 07/30/19 14:11 O2 Sat by Pulse Oximetry (%) 98 07/27/19 09:37 Laboratory Tests 07/27/19 07/27/19 07/27/19 08:15 08:15 08:15 WBC 5.6 RBC 4.28 Hgb 12.8 Hct 38.8 MCV 90.5 MCH 29.9 MCHC 33.0 RDW 14.8 Plt Count 161 D MPV 9.5 Sodium 139 Potassium 3.5 Chloride 104 Carbon Dioxide 27 Anion Gap 7 L BUN 15.9 Creatinine 0.9 Est GFR (CKD-EPI)AfAm 123.39 Est GFR (CKD-EPI)NonAf 106.46 Random Glucose 113 H Calcium 8.6 Total Bilirubin 0.2 AST 193 H ALT 412 H Alkaline Phosphatase 92 Total Protein 6.2 L Albumin 3.2 L RPR Titer Nonreactive 07/30/19 07:30 WBC RBC Hgb Hct MCV MCH MCHC RDW Plt Count MPV Sodium Potassium Chloride Carbon Dioxide Anion Gap BUN Creatinine Est GFR (CKD-EPI)AfAm Est GFR (CKD-EPI)NonAf Random Glucose Calcium Total Bilirubin AST 64 H ALT Alkaline Phosphatase Total Protein Albumin RPR Titer LABS NOTED. RESULT OF REPEAT AST LEVEL NOTED -SIGNIFICANTLY LOWER THAN AST LEVEL NOTED AT TIME OF ADMISSION TO DETOX. 07/30/19 17:02 Assessment: 07/30/19 17:01 WITHDRAWAL SYMPTOMS. ELEVATED AST LEVEL. ELEVATED ALT LEVEL. 07/30/19 17:01 Plan: CONTINUE DETOX. PRN TIGAN IM FOR NAUSEA. ENSURE PO FOR CALORIC SUPPLEMENTATION. PATIENT SCHEDULED FOR D/C FROM DETOX UNIT TOMORROW.
[2019-07-30] MEDS: MELATONIN 5 MG TABLETS PO PRN (22:13)
[2019-07-30] MEDS: THIAMINE HCL 100 MG TABLET (FP) PO SCH (22:13)
[2019-07-31] MEDS ORDERED: METHADONE HCL 10 MG TABLET ONE (04:35)
[2019-07-31] MEDS ORDERED: METHADONE HCL 40 MG DISPERSABLE TABLET ONE (04:36)
[2019-07-31] MEDS ORDERED: LORazepam 0.5 MG TABLET PO ONE (05:00)
[2019-07-31] MEDS ORDERED: chlordiazePOXIDE HCL 10 MG CAPSULE PO ONE (05:00)
[2019-07-31] MEDS ORDERED: predniSONE 20 MG TABLET (UD) PO ONE (05:00)
[2019-07-31] MEDS: METHADONE 80 MG, METHADONE 10 MG PO SCH (05:20)
[2019-07-31 09:36] VITALS: BP 135/73; PULSE 67; TEMP 97
[2019-07-31] MEDS: NICOTINE 7 MG/24 HOURS TOPICAL PATCH TD SCH (10:48)
[2019-07-31] MEDS: PRENATAL VITAMINS W/ FOLIC ACID TABLET (FP) PO SCH (10:48)
--- NOTE | 2019-07-31 18:49 | DS ---
[facility] Detox Discharge Summary Admission Date: 07/26/19 Discharge Date: 07/31/19 - History Present History: Alcohol Dependence, Opioid Dependence, Sedative Dependence Additional Comments: PATIENT RETURNING TO [facility], WHERE HE WAS PREVIOUSLY A CLIENT, FOR AFTERCARE. PATIENT WILL ALSO LIKELY ATTEND 12-STEP / NA / AA OUTPATIENT SUPPORT GROUPS AT [facility]. PATIENT ADVISED TO FOLLOW-UP WITH [facility] AFTER DISCHARGE FROM DETOX FOR ELEVATED AST AND ALT LEVELS NOTED ON DETOX ADMISSION LABORATORY AND REPEAT ASSESSMENTS. PATIENT VERBALIZED UNDERSTANDING OF RECOMMENDATION. COPIES OF RESULTS OF ALL LABS DRAWN WHILE ADMITTED FOR DETOX GIVEN TO PATIENT AT TIME OF DISCHARGE FROM DETOX UNIT. PATIENT WAS DISCHARGED FORM DETOX UNIT IN STABLE MEDICAL CONDITION. Pertinent Past History: Depression, Bipolar Disorder, Insomnia, Anxiety, Nicotine Dependence, Asthma. - Physical Exam Results Vital Signs: Vital Signs Temperature 97.0 F L 07/31/19 09:36 Pulse Rate 67 07/31/19 09:36 Respiratory Rate 16 07/31/19 09:36 Blood Pressure 135/73 07/31/19 09:36 O2 Sat by Pulse Oximetry (%) 98 07/27/19 09:37 Pertinent Admission Physical Exam Findings: WITHDRAWAL SYMPTOMS. Laboratory Tests 07/27/19 07/27/19 07/27/19 08:15 08:15 08:15 WBC 5.6 RBC 4.28 Hgb 12.8 Hct 38.8 MCV 90.5 MCH 29.9 MCHC 33.0 RDW 14.8 Plt Count 161 D MPV 9.5 Sodium 139 Potassium 3.5 Chloride 104 Carbon Dioxide 27 Anion Gap 7 L BUN 15.9 Creatinine 0.9 Est GFR (CKD-EPI)AfAm 123.39 Est GFR (CKD-EPI)NonAf 106.46 Random Glucose 113 H Calcium 8.6 Total Bilirubin 0.2 AST 193 H ALT 412 H Alkaline Phosphatase 92 Total Protein 6.2 L Albumin 3.2 L RPR Titer Nonreactive 07/30/19 07:30 WBC RBC Hgb Hct MCV MCH MCHC RDW Plt Count MPV Sodium Potassium Chloride Carbon Dioxide Anion Gap BUN Creatinine Est GFR (CKD-EPI)AfAm Est GFR (CKD-EPI)NonAf Random Glucose Calcium Total Bilirubin AST 64 H ALT Alkaline Phosphatase Total Protein Albumin RPR Titer LABS NOTED. - Treatment Hospital Course: Detox Protocol Followed, Detoxed Safely, Responded well, Discharged Condition Good Patient has Accepted a Rehab Referral to: PATIENT WILL RETURN TO PREVIOUS [facility]. - Medication Discharge Medications: Ambulatory Orders NK [No Known Home Medication] 05/01/19 - Diagnosis (1) Elevated aspartate aminotransferase level Status: Acute (2) Sedative hypnotic or anxiolytic dependence Status: Acute (3) Nicotine dependence Status: Chronic Qualifiers: Nicotine product type: cigarettes Substance use status: uncomplicated Qualified Code(s): F17.210 - Nicotine dependence, cigarettes, uncomplicated (4) Alcohol dependence with uncomplicated withdrawal Status: Acute (5) Uncomplicated opioid dependence Status: Acute - AMA Did Patient Leave Against Medical Advice: No [facility] CIWA - CIWA Score Nausea/Vomitin-No Nausea/No Vomiting Muscle Tremors: None Anxiety: 2 Agitation: 1-Slight > Activity Paroxysmal Sweats: No Perspiration Orientation: 0-Oriented Tacttile Disturbances: 0-None Auditory Disturbances: 0-None Visual Disturbances: 0-None Headache: 0-None Present CIWA-Ar Total Score: 3
== END 2019-07-31 09:40 | disposition home or self-care (01) | DRG 773 ==
LOC: YASAS 13:37 → Y3N 18:27
PROVIDERS: ADMIT Surgery; ATTEND Surgery
PROC: HZ2ZZZZ Detoxification Services for Substance Abuse Treatment (ICD-10-PCS; principal; 2019-07-26)
DX: F10.230 Alcohol dependence with withdrawal, uncomplicated (principal); F11.20 Opioid dependence, uncomplicated; F13.230 Sedative, hypnotic or anxiolytic dependence with withdrawal, uncomplicated; F14.20 Cocaine dependence, uncomplicated; F17.210 Nicotine dependence, cigarettes, uncomplicated; F31.9 Bipolar disorder, unspecified; J45.909 Unspecified asthma, uncomplicated; R94.5 Abnormal results of liver function studies; D64.9 Anemia, unspecified; Z59.0 Homelessness
CPT/HCPCS: 36415; 80053; 84450; 85027; 86593; 94640